=== PATIENT | male | born 1995 | race Caucasian/White ===

== ENCOUNTER 2017-09-18 16:11 | Emergency (ER) | payer MEDICAID ==
[~2017-09-18] VITALS: Ht 182.9 cm; Wt 69.0 kg
[2017-09-18] MEDS ORDERED: FLUT1BLS INH (16:55)
[2017-09-18] MEDS ORDERED: ALBU18HF INH (16:55)
[2017-09-18] MEDS ORDERED: SODIUM CHLORIDE 0.9% 1,000ML IVBOLUS ONE (17:00)
[2017-09-18] MEDS ORDERED: SODIUM CHLORIDE FLUSH 10ML SYR IVF ONE (17:00)
[2017-09-18] MEDS ORDERED: ONDANSETRON 2MG/ML, 2ML IVPush ONE (17:00)
[2017-09-18] MEDS ORDERED: ONDANSETRON 2MG/ML, 2ML ONE (17:12)
[2017-09-18] MEDS ORDERED: HYDROmorphone 1 MG/ML, 1ML ONE ×3 (17:12→19:46)
[2017-09-18] MEDS: HYDROmorphone 1 MG/ML, 1ML IVPush PRN ×2 (17:13→19:14)
[2017-09-18 17:15] LABS: HEMATOCRIT 49.1 % (39.2-51.8); HEMOGLOBIN 16.9 g/dL (13.7-18.0); WHITE BLOOD COUNT 9.5 x10^3/uL (3.4-10)
[2017-09-18 17:28] LABS: ASPARTATE AMINO TRANSFERASE 28 U/L (15-37); BLOOD UREA NITROGEN 11 mg/dL (7-18)
[2017-09-18 17:51] LABS: DIFF TOTAL CELLS COUNTED 200 CELL DIFF
[2017-09-18 17:52] LABS: VERIFY COUNTS? YES
[2017-09-18 19:16] VITALS: BP 110/60
[2017-09-18] MEDS ORDERED: HYDROmorphone 1 MG/ML, 1ML IVPush PRN (20:00)
[2017-09-18] MEDS ORDERED: OMNIPAQUE 350 MG/ML, 100ML BOTTLE ONE (20:07)
[2017-09-18] MEDS ORDERED: ONDANSETRON ODT 4 MG ONE (20:30)
[2017-09-18] MEDS ORDERED: ONDANSETRON ODT 4 MG PO ONE (21:00)
== END 2017-09-18 20:38 | disposition home or self-care (01) ==
LOC: ED 20:00
DX: S52.502A Unspecified fracture of the lower end of left radius, initial encounter for closed fracture (principal); S20.219A Contusion of unspecified front wall of thorax, initial encounter; R59.0 Localized enlarged lymph nodes; R91.1 Solitary pulmonary nodule; V29.3XXA Motorcycle rider (driver) (passenger) injured in unspecified nontraffic accident, initial encounter; Y93.89 Activity, other specified; Y99.8 Other external cause status; Y92.828 Other wilderness area as the place of occurrence of the external cause
CPT/HCPCS: 29125; 36415; 71260; 73090; 73110; 74177; 80053; 81003; 85025; 96361; 96374; 96375; 96376; 99285; J1170; J2405; J7030; Q0162; Q9967